=== PATIENT | male | born 1955 | race Caucasian/White ===

== ENCOUNTER 2017-06-14 08:47 | Inpatient (IN) | payer OTHER ==
[2017-06-14 09:02] VITALS: BMI 23.6
--- NOTE | 2017-06-14 09:04 | PDOC ---
History of Present Illness <Hannah Blackmon - Last Filed: 06/14/17 18:42> - History of Present Illness Initial Comments: 62 year old male with history of Hep C (s/p Ribavirin treatment) complicated with metastatic hepatic carcinoma (s/p failed chemo with mets to the mediastinum ) curently with recent renal compromise currently on palliative treatments (but not on hospice) BIBA for AMS after being found down at home by his couch. He has no history of hepatic encephalopathy and there was no mention of initiating dialysis for his recent renal insult. Upon arrival to the ED he had a waxing/ waning mental status with some moments of complete clarity. He did come into the the ED with living will forms indicating that he is a DNR/ DNI which was confirmed with him while he was mentating well and corroborated by his brother, sister, and his parents. Of note, he is on morphine and oxycodone at home. He has no current complaint and denies fevers, chills, nausea, vomiting, diarrhea, chest pain, or other symptoms. 06/14/17 10:40 <Marco Antonio Deluna - Last Filed: 06/15/17 10:25> - General Chief Complaint: Altered Mental Status Stated Complaint: Altered Mental Status Time Seen by Provider: 06/14/17 08:51 Past History <Hannah Blackmon - Last Filed: 06/14/17 18:42> - Past Medical History Diabetes: Yes GI Disorders: Yes (end stage liver failure) HTN: Yes - Immunization History Immunization Up to Date: Yes - Suicide/Smoking/Psychosocial Hx Smoking History: Never smoked Have you smoked in the past 12 months: No Cigars Per Day: 1 Information on smoking cessation initiated: No Hx Alcohol Use: No Drug/Substance Use Hx: No Substance Use Type: None <Marco Antonio Deluna - Last Filed: 06/15/17 10:25> - Past Medical History Allergies/Adverse Reactions: Allergies Allergy/AdvReac Type Severity Reaction Status Date / Time No Known Allergies Allergy Verified 06/14/17 09:02 Home Medications: Ambulatory Orders Amlodipine Besylate [Norvasc -] 10 mg PO BID 06/14/17 Furosemide [Lasix] 40 mg PO DAILY 06/14/17 Losartan Potassium 100 mg PO DAILY 06/14/17 Metformin HCl 500 mg PO DAILY 06/14/17 Morphine Sulfate [Morphine Sulfate ER] 30 mg PO BID 06/14/17 Oxycodone HCl 10 mg PO QID 06/14/17 Spironolactone 50 mg PO DAILY 06/14/17 Review of Systems - Review of Systems Constitutional: No: Chills, Fever HEENTM: No: Blurred Vision Respiratory: No: Shortness of Breath, Productive cough Cardiac (ROS): No: Chest Pain, Irregular Heart Rate ABD/GI: No: Nausea, Vomiting Integumentary: Yes: Bruising, Erythema <Marco Antonio Deluna - Last Filed: 06/15/17 10:25> *Physical Exam - Vital Signs Last Vital Signs Temp Pulse Resp BP Pulse Ox 95.0 F L 71 18 100/55 98 06/14/17 08:51 06/14/17 18:12 06/14/17 18:12 06/14/17 18:12 06/14/17 18:12 <Hannah Blackmon - Last Filed: 06/14/17 18:42> - Vital Signs Last Vital Signs Temp Pulse Resp BP Pulse Ox 95.0 F L 64 18 99/57 100 06/14/17 08:51 06/14/17 08:51 06/14/17 08:51 06/14/17 08:51 06/14/17 08:51 - Physical Exam General Appearance: Yes: Appropriately Dressed, Thin (Face and arms are thin/ cahcectic but his abdomen is large and apparently fluid filled. He is overall jaundiced.). No: Apparent Distress HEENT: positive: EOMI, CAM, Normal Voice, Scleral Icterus (R), Scleral Icterus (L). negative: Normal ENT Inspection Neck: positive: Trachea midline, Normal Thyroid, Supple. negative: Tender, Rigid Respiratory/Chest: positive: Lungs Clear, Normal Breath Sounds. negative: Chest Tender, Respiratory Distress Cardiovascular: positive: Regular Rhythm, Regular Rate, JVD. negative: Murmur Gastrointestinal/Abdominal: positive: Normal Bowel Sounds, Distended, Other ( Dullness to percussion with positive fluid wave). negative: Tender Musculoskeletal: negative: Normal Inspection (Generally very weak and acutely deconditioned.) Extremity: positive: Normal Capillary Refill (Slightly delayed cap refill), Normal Range of Motion (Weak per above). negative: Normal Inspection (Erythema in bilateral lower extremities that seems chronic.), Tender Integumentary: positive: Dry, Warm, Erythema. negative: Normal Color Neurologic: positive: Alert, Normal Response. negative: Fully Oriented (AOx 1 ( to person) but pleasant and conversant. No hallucinations or aggitation.), Motor Strength 5/5 (Very weak LE>UE) <Marco Antonio Deluna - Last Filed: 06/15/17 10:25> ED Treatment Course - LABORATORY CBC & Chemistry Diagram: 06/14/17 10:00 06/14/17 18:00 - ADDITIONAL ORDERS Additional order review: Laboratory Results 06/14/17 06/14/17 06/14/17 10:00 10:00 10:00 PT with INR INR Sodium 139 Potassium 6.1 H* Chloride 104 Carbon Dioxide 12 L Anion Gap 23 H BUN 149 H* Creatinine 4.9 H Creat Clearance w eGFR 12.10 Random Glucose 76 Lactic Acid 10.8 H* Calcium 8.7 Magnesium 3.5 H Total Bilirubin 13.6 H AST 910 H ALT 158 H Alkaline Phosphatase 384 H Ammonia 162.98 H Creatine Kinase 310 H Creatine Kinase Index 1.3 CK-MB (CK-2) 4.1 H Troponin I < 0.02 Total Protein 6.7 Albumin 2.4 L 06/14/17 10:00 PT with INR 17.70 H INR 1.57 H Sodium Potassium Chloride Carbon Dioxide Anion Gap BUN Creatinine Creat Clearance w eGFR Random Glucose Lactic Acid Calcium Magnesium Total Bilirubin AST ALT Alkaline Phosphatase Ammonia Creatine Kinase Creatine Kinase Index CK-MB (CK-2) Troponin I Total Protein Albumin 06/14/17 10:00 RBC 4.21 MCV 92.2 MCHC 33.2 RDW 18.9 H D MPV 9.0 Neutrophils % 95.0 H Lymphocytes % 1.1 L D Monocytes % 3.7 L Eosinophils % 0.0 Basophils % 0.2 - Medications Given in the ED: ED Medications Discontinued Medications Generic Name Dose Route Start Last Admin Trade Name Freq PRN Reason Stop Dose Admin Calcium Gluconate 1,000 mg 06/14/17 13:24 06/14/17 16:05 Calcium Gluconate 10% - IVPB 06/14/17 13:25 1,000 mg ONCE ONE Administration Dextrose 25 gm 06/14/17 13:27 06/14/17 14:19 D50w (Vial) - IVPUSH 06/14/17 13:28 25 gm NOW ONE Administration Insulin Human Regular 5 units 06/14/17 13:24 06/14/17 14:19 Novolin R Vial *For Ivpush Or Iv Drip Only* IVPUSH 06/14/17 13:25 5 units ONCE ONE Administration Lactulose 20 gm 06/14/17 13:29 06/14/17 14:20 Cephulac (Oral Use) PO 06/14/17 13:30 20 gm ONCE ONE Administration Sodium Bicarbonate 50 meq 06/14/17 13:25 06/14/17 14:19 Sodium Bicarbonate 8.4% - IVPUSH 06/14/17 13:26 50 meq ONCE ONE Administration Sodium Chloride 500 ml 06/14/17 10:40 06/14/17 10:51 Normal Saline - IV 06/14/17 10:41 500 ml ONCE ONE Administration <Hannah Blackmon - Last Filed: 06/14/17 18:42> - LABORATORY CBC & Chemistry Diagram: 06/14/17 10:00 06/15/17 02:10 <Marco Antonio Deluna - Last Filed: 06/15/17 10:25> Medical Decision Making - Medical Decision Making 06/14/17 18:[address] Garcia [phone] <Hannah Blackmon - Last Filed: 06/14/17 18:42> - Medical Decision Making 62 year old male with AMS most likely hepatic enchaplopathy vs. uremic encephalopathy vs. metabolic encephalopathy vs. met to brain vs. stroke. Likely the initial two as opposed to the latter. Will get CT scan, sepsis protocol labs , and defer paracentesis for now. PAtient is DNR/DNI per personal wishes, family wishies, and living will papers. VS roughly sable with some slight hypotenion with BPs in upper 90s/ low 100s. Head CT showing heterogeneous extracranial mass (previously irradiated) but no apparently new pathologies or intracranial pathology. Patient given insulin 5, glucose, sodium bicarb, calcium gluconate, and 500 NS for his electrolyte abnormalities (hyperkalemia, hyperuremia, hyperammonemia, Spoke with Dr. Garcia regarding the lab derangements and further plans for care and he is on board with an admission for tele and further electrolyte normalization. He wants Arlette as a neuro consult and Mirela Paulson as a nephrology consult. Spoke with Dr. Prescott and he held a strong opinion that we should be as minimally invasive as possible. He even suggested to stop drawing labs as he should be comfort care only. Relayed this information to Dr. Garcia and he believes that some supportive measures with D5 1/2NS @ 100 per hour should help resolve the electrolyte D5 1/2 @ 100 cc hr along with potassium lowering therapies. Placed consult for Elvira Ladd and Arlette. Spoke with family and they are going to consider all of the options. 06/14/17 13:50 Vahid (brother) number [phone] 06/14/17 18:05 Dr. Garcia spoken to while at patient bedside. He would like Kayexalate and albuterol nebs. Orders placed. He feels that he can turn the patient around without dialysis. 06/14/17 19:17 <Marco Antonio Deluna - Last Filed: 06/15/17 10:25> *DC/Admit/Observation/Transfer <Hannah Blackmon - Last Filed: 06/14/17 18:42> - Discharge Dispostion Admit: Yes <Marco Antonio Deluna - Last Filed: 06/15/17 10:25> Diagnosis at time of Disposition: Hyperkalemia, Uremia, Hyperammonemia Altered mental status Qualifiers: Altered mental status type: transient alteration of awareness Qualified Code(s) : R40.4 - Transient alteration of awareness - Discharge Dispostion Condition at time of disposition: Stable
[2017-06-14 10:08] LABS: BASOPHIL 0.2 % (0-2.0); MCH 30.6 pg (25.7-33.7); MCHC 33.2 g/dl (32.0-35.9); MEAN CELL VOLUME 92.2 fl (80-96); PLATELET COUNT 409 K/MM3 (134-434); RDW 18.9 % (11.9-15.9); WHITE BLOOD COUNT 13.5 K/mm3 (4.0-10.0)
[2017-06-14 10:20] LABS: INR 1.57 (0.82-1.09); PROTHROMBIN TIME (PATIENT) 17.7 SEC (9.98-11.88)
[2017-06-14 10:30] LABS: ALBUMIN 2.4 g/dl (3.4-5.0); ANION GAP 23 (8-16); BILIRUBIN,TOTAL 13.6 mg/dL (0.2-1.0); CALCIUM 8.7 mg/dL (8.5-10.1); CO2 12 mmol/L (21-32); CREATININE 4.9 mg/dL (0.7-1.3); GLUCOSE,RANDOM 76 mg/dL (74-106); SGPT/ALT 158 U/L (12-78); TOT PROT 6.7 g/dl (6.4-8.2)
[2017-06-14 10:31] LABS: ALK PHOS 384 U/L (45-117)
[2017-06-14 10:38] LABS: SGOT/AST 910 U/L (15-37)
[2017-06-14 10:39] LABS: MAGNESIUM 3.5 mg/dL (1.8-2.4)
[2017-06-14] MEDS ORDERED: SODIUM CHLORIDE 0.9% 1000 ML INFUS.BAG IV ONE (10:40)
--- NOTE | 2017-06-14 10:42 | PDOC ---
Attending Attestation - Resident Resident Name: Marco Antonio Deluna - ED Attending Attestation I have performed the following: I have examined & evaluated the patient, The case was reviewed & discussed with the resident, I agree w/resident's findings & plan, Exceptions are as noted - HPI HPI: 06/14/17 10:40 62-year-old male with history of hepatitis C and end-stage liver CA brought in by EMS after parents found patient on floor this morning. Patient was apparently at his baseline yesterday, ambulatory and performing his activities of daily living. This morning he was found on the floor confused, intermittently answering questions appropriately. Questions regarding advanced directives were ultimately addressed as patient confirmed with EMS that he is DNR/DNI, and EMS spoke to the patient's sister who is health care proxy who confirmed same. Paperwork is printed but unsigned but confirms the above. - Physicial Exam PE: 06/14/17 10:42 temp 95, NBP 100 systolic mental status currently improved, recalls having chills and recalls EMS transport + jaundice no head trauma abrasions to both forearms abd distended b/l leg ecchymosis - Medical Decision Making 06/14/17 11:07 Patient seen and evaluated with the resident. I agree with the overall evaluation, assessment, and management with the following summary of visit: 62-year-old male end-stage liver CVA brought in by EMS with altered mental status after found on floor this morning. Previously very altered, now becoming more lucid. Question encephalopathy, rule out TBI or brain lesion, rule out infection. Full workup with labs, urinalysis CT head, chest x-ray Discuss plan with patient and sister, confirms DNR/DNI though Airways currently patent and mental status improved Parents at bedside, agree with management We'll discuss ultimate disposition with patient's oncologist at [facility]. Heart Score/ECG Review #1 ECG reviewed & interpreted by me at: 09:00 General ECG Interpretation: Sinus Rhythm, Normal Rate (75), Normal Intervals ( qtc 446), No acute ischemic changes (baseline artifact, no clear ST changes)
[2017-06-14 10:58] LABS: CPK 310 IU/L (39-308); TROPONIN I < 0.02 ng/ml (0.00-0.05)
[2017-06-14] MEDS ORDERED: INSULIN REGULAR HUMAN 100 UNITS/ML *VIAL IVPUSH ONE ×2 (13:24→18:35)
[2017-06-14] MEDS ORDERED: CALCIUM GLUCONATE 10% - 1,000 MG/10 ML VIAL IVPB ONE (13:24)
[2017-06-14] MEDS ORDERED: SODIUM BICARBONATE 8.4% 50 MEQ/50 ML DISP.SYRIN IVPUSH ONE ×2 (13:25→18:37)
[2017-06-14] MEDS ORDERED: DEXTROSE 50%-WATER - 25 GM/50 ML VIAL IVPUSH ONE ×2 (13:27→18:36)
[2017-06-14] MEDS ORDERED: LACTULOSE 20 GM/30 ML UDC (FOR ORAL USE ONLY) PO ONE (13:29)
[2017-06-14] MEDS ORDERED: SODIUM BICARBONATE 8.4% - 50 ML ONE ×2 (14:12→18:53)
[2017-06-14] MEDS ORDERED: LACTULOSE 20 GM/30 ML UDC (FOR ORAL USE ONLY) ONE (14:12)
[2017-06-14] MEDS ORDERED: DEXTROSE 50%-WATER 25 GM/50 ML DISP.SYRIN ONE ×2 (14:12→18:53)
--- NOTE | 2017-06-14 14:42 | EKG ---
Test Reason : Blood Pressure : / mmHG Vent. Rate : 075 BPM Atrial Rate : 075 BPM P-R Int : 206 ms QRS Dur : 102 ms QT Int : 400 ms P-R-T Axes : 076 -18 071 degrees QTc Int : 446 ms NORMAL SINUS RHYTHM CANNOT RULE OUT ANTERIOR INFARCT , AGE UNDETERMINED ABNORMAL ECG WHEN COMPARED WITH ECG OF 12-JUN-2008 10:10, QRS VOLTAGE HAS DECREASED T WAVE VARIATION BASELINE ARTIFACT Confirmed by LISA CALDWELL, LOR ([id number]) on 06/14/2017 2:41:47 PM Referred By: Confirmed By:LOR GONZALEZ MD
[2017-06-14] MEDS ORDERED: DEXTROSE 5%-0.45% SALINE 1,000 ML IV SCH ×2 (14:45)
[2017-06-14] MEDS ORDERED: CALCIUM GLUCONATE 10% - 1,000 MG/10 ML VIAL ONE ×2 (15:56→20:35)
[2017-06-14 18:26] LABS: ALBUMIN 1.5 g/dl (3.4-5.0); ANION GAP 23 (8-16); BILIRUBIN,TOTAL 8.6 mg/dL (0.2-1.0); CALCIUM 7.5 mg/dL (8.5-10.1); CO2 10 mmol/L (21-32); CREATININE 4.8 mg/dL (0.7-1.3); GLUCOSE,RANDOM 171 mg/dL (74-106); SGPT/ALT 229 U/L (12-78); TOT PROT 4.1 g/dl (6.4-8.2)
[2017-06-14 18:29] LABS: ALK PHOS 218 U/L (45-117); CPK 466 IU/L (39-308); SGOT/AST 896 U/L (15-37); TROPONIN I < 0.02 ng/ml (0.00-0.05)
[2017-06-14] MEDS ORDERED: CALCIUM GLUCONATE 10% - 1,000 MG/10 ML VIAL IVPUSH ONE (18:37)
[2017-06-14] MEDS ORDERED: PIPERACIL/TAZOB 3.375 GM 3.375 GM/50 ML PREMIX IVPB ONE (19:02)
[2017-06-14] MEDS ORDERED: VANCOMYCIN 2,000 MG in DEXTROSE 5%-WATER - 500 ML IVPB SCH (19:15)
[2017-06-14] MEDS ORDERED: SODIUM POLYSTYRENE SULFONATE 15 GM/60 ML BOTTLE PO ONE (19:15)
[2017-06-14] MEDS ORDERED: ALBUTEROL SO4 0.083% IH SOL 2.5 MG/3 ML VIAL.NEB. NEB ONE ×2 (19:16→20:35)
[2017-06-14] MEDS ORDERED: PIPERACILLIN/TAZOB 3.375 GM 50 ML IVPB ONE ×2 (19:30→20:35)
[2017-06-14] MEDS ORDERED: SODIUM POLYSTYRENE SULFONATE 15 GM/60 ML BOTTLE ONE (20:35)
[2017-06-14] MEDS ORDERED: VANCOMYCIN 1 GRAM (PRE-DOCKED) 500 ML IVPB ONE (21:19)
[2017-06-15 03:00] LABS: ANION GAP 24 (8-16); CALCIUM 7.5 mg/dL (8.5-10.1); CO2 11 mmol/L (21-32); CREATININE 4.8 mg/dL (0.7-1.3); GLUCOSE,RANDOM 126 mg/dL (74-106)
[2017-06-15] MEDS ORDERED: SODIUM POLYSTYRENE SULFONATE 15 GM/60 ML BOTTLE PO ONE (05:00)
[2017-06-15] MEDS ORDERED: SODIUM POLYSTYRENE SULFONATE 15 GM/60 ML BOTTLE ONE (05:02)
[2017-06-15] MEDS ORDERED: DEXTROSE 5%-WATER - 1,000 ML with SODIUM BICARBONATE 8.4% - 150 MEQ IV SCH (09:45)
--- NOTE | 2017-06-15 09:56 | CON.NEP ---
Consult Consult Specialty:: Nephrology Referred by:: Dr. Garcia Reason for Consultation:: DAVIE, Hyperkalemia, Metabolic Acidosis - History of Present Illness Chief Complaint: AMS History of Present Illness: This is a 62 year old gentleman with with PMhx of Hepatitis C with cirrhosis and HCC with Mets with DAVIE/CKD presented with AMS and found to have worsening renal function, metabolic acidosis and lactic acidosis. Pt seen at the bedside this am, is awake and alert but not able to provide history. Denies any pain at this time. Unclear if pt is making urine. Pt was started on IVF upon admission. Pt noted to have hyperkalemia and treated with Kayexalate/IV insulin. No cornelius inserted so unsure how much urine is being produced. - History Source History Provided By: Medical Record Limitations to Obtaining History: Clinical Condition - Past Medical History Gastrointestinal: Yes: Cancer, Other Hepatobiliary: Yes: Cirrhosis, Hepatitis C Renal/: Yes: Renal Failure, Renal Inusuff - Alcohol/Substance Use Hx Alcohol Use: No - Smoking History Smoking history: Never smoked Have you smoked in the past 12 months: No Aproximately how many cigarettes per day: 20 Home Medications - Allergies Allergies/Adverse Reactions: Allergies Allergy/AdvReac Type Severity Reaction Status Date / Time No Known Allergies Allergy Verified 06/14/17 09:02 - Home Medications Home Medications: Ambulatory Orders Amlodipine Besylate [Norvasc -] 10 mg PO BID 06/14/17 Furosemide [Lasix] 40 mg PO DAILY 06/14/17 Losartan Potassium 100 mg PO DAILY 06/14/17 Metformin HCl 500 mg PO DAILY 06/14/17 Morphine Sulfate [Morphine Sulfate ER] 30 mg PO BID 06/14/17 Oxycodone HCl 10 mg PO QID 06/14/17 Spironolactone 50 mg PO DAILY 06/14/17 Family Disease History - Family Disease History Family History: Unable to Obtain Review of Systems - Review of Systems Constitutional: reports: Lethargy, Loss of Appetite. denies: Fever Eyes: reports: No Symptoms Neck: reports: No Symptoms Cardiovascular: reports: No Symptoms Respiratory: reports: No Symptoms Gastrointestinal: reports: Bloating Musculoskeletal: reports: No Symptoms Endocrine: reports: No Symptoms Nephrology Consult - Height Height: 5 ft 9 in - Weight Weight: 160 lb - BMI Body Mass Index (BMI): 23.6 - Lab Results CBC,BMP: CBC, BMP 06/15/17 02:10 Anion Gap: Anion Gap Anion Gap 24 (8-16) H 06/15/17 02:10 - Imaging Chest X-ray: Report Reviewed - Physical Examination Vital Signs: Vital Signs Temperature 92.8 F L 06/15/17 02:00 Pulse Rate 65 06/15/17 02:00 Respiratory Rate 20 06/15/17 02:00 Blood Pressure 88/57 06/15/17 02:00 O2 Sat by Pulse Oximetry (%) 96 06/14/17 22:00 Constitutional: Yes: No Distress, Calm, Cachectic Eyes: Yes: Sclera Icterus HENT: Yes: Atraumatic, Normocephalic Neck: Yes: Supple Cardiovascular: Yes: Regular Rate and Rhythm Respiratory: Yes: Regular, Diminished. No: Rales, Rhonchi, Wheezes Gastrointestinal: Yes: Soft, Ascites. No: Palpable Mass, Tenderness Renal/: No: Anuria, Bladder Distention, CVA Tenderness - Left, CVA Tenderness - Right, Cornelius Present Edema: Yes Edema: LLE: 1+, RLE: 1+ Neurological: Yes: Alert. No: Oriented Psychiatric: Yes: Alert Problem List - Problems (1) Altered mental status Code(s): R41.82 - ALTERED MENTAL STATUS, UNSPECIFIED Qualifiers: Altered mental status type: transient alteration of awareness Qualified Code(s): R40.4 - Transient alteration of awareness; R40.4 - Transient alteration of awareness (2) Hyperammonemia Code(s): E72.20 - DISORDER OF UREA CYCLE METABOLISM, UNSPECIFIED (3) Hyperkalemia Code(s): E87.5 - HYPERKALEMIA (4) Uremia Code(s): N19 - UNSPECIFIED KIDNEY FAILURE (5) Metabolic acidosis Code(s): E87.2 - ACIDOSIS (6) Lactic acidosis Code(s): E87.2 - ACIDOSIS Assessment/Plan 62 year old gentleman with with PMhx of Hepatitis C with cirrhosis and HCC with Mets with DAVIE/CKD presented with AMS and found to have worsening renal function , metabolic acidosis and lactic acidosis. #Progressive renal failure in setting of hepatitis C cirrhosis likely due to progressive Hepato-renal syndrome with metabolic acidosis and hyperkalemia pt without significant improvement in renal function with IVF started yesterday evening at this time dialysis is likely the only option but given advanced cirrhosis and carcinoma his overall prognosis remains grave. spoke to his brother Raj ([phone]) at length about his current status and he made it clear that Mr. Plunkett does not want any aggressive measures including dialysis at this time and that he would want comfort measures. Will change IVF to D5W with sodium bicarbonate given his level of acidosis no further labs to be drawn #Hepatitis C with cirrhosis and HCC with Mets pt is end stage at this time comfort care measures Prognosis is grave Will monitor Thank you Compa Berry DO
[2017-06-15] MEDS ORDERED: SODIUM BICARBONATE 8.4% - 150 MEQ in DEXTROSE 5%-WATER - 1,000 ML IV SCH (10:13)
--- NOTE | 2017-06-15 10:37 | HP ---
DATE OF ADMISSION: 06/14/2017 HISTORY OF PRESENT ILLNESS: This is a 62-year-old male known to have hepatitis C and CA of the liver end-stage, who was being treated at [facility]. Yesterday, he was found unresponsive at home, was brought to the emergency room. In the emergency room, he was very lethargic, hypotensive, in septic shock. This morning, he is awake, he is very lethargic, and he is not talking properly. PHYSICAL EXAMINATION: Vital signs: BP 88/60, pulse 65, temperature 92, respirations 24. General: Very cachectic. Neck: supple. Lungs: Breath sounds diminished. Heart: S1, S2 normal. No S3, S4. Abdomen: Distended. Extremities: There is erythema on both the legs. Neurological: Grossly lethargic. LABORATORY REPORTS: WBC 13, hemoglobin 12.9. Coagulation: INR 1.5. Chemistry: Sodium 140, potassium 6.5, BUN 171, creatinine 4.8, lactic acid high 12.1. IMPRESSION: Patient with end-stage cancer of the liver. PLAN: Family wants him DNR. I will order DNR, no aggressive management at this time. Clem [id number]
--- NOTE | 2017-06-15 12:29 | EKG ---
Test Reason : Blood Pressure : / mmHG Vent. Rate : 077 BPM Atrial Rate : 077 BPM P-R Int : 190 ms QRS Dur : 076 ms QT Int : 412 ms P-R-T Axes : 020 -27 004 degrees QTc Int : 466 ms SINUS RHYTHM Baseline wander LOW VOLTAGE QRS BORDERLINE ECG WHEN COMPARED WITH ECG OF 14-JUN-2017 09:00, QRS DURATION HAS DECREASED FURTHER COMPARISON IS NOT POSSILE BECAUSE OF SIGNIFICANT ARTIFCSTS ON PREVIOUS EKG REPEAT EKG IF CLINICALLY INDICATED Confirmed by COLIN DELGADO MD ([id number]) on 06/15/2017 12:29:00 PM Referred By: Confirmed By:COLIN DELGADO MD
--- NOTE | 2017-06-15 12:53 | HOSP ---
Subjective - Review of Symptoms Subjective: Asked by RN to evaluate patient for exam Patient DNR/DNI Family at bedside-mother father and brother no electrical activity on EKG no heart sounds no lung sounds no spontaneous respirations no gag or corneal reflexes pupils fixed and dilated-non reactive Time of : 1247pm Dr. Garcia made aware Physical Examination Vital Signs: Vital Signs Temperature 92.8 F L 06/15/17 02:00 Pulse Rate 65 06/15/17 02:00 Respiratory Rate 20 06/15/17 02:00 Blood Pressure 88/57 06/15/17 02:00 O2 Sat by Pulse Oximetry (%) 96 06/14/17 22:00 Labs: CBC, BMP 06/15/17 02:10 Visit type - Emergency Visit Emergency Visit: Yes ED Registration Date: 06/14/17 Care time: The patient presented to the Emergency Department on the above date and was hospitalized for further evaluation of their emergent condition. - New Patient This patient is new to me today: Yes Date on this admission: 06/15/17 - Critical Care Critical Care patient: No
[2017-06-15 13:04] VITALS: BP 54/40; PULSE 42; TEMP 95
--- NOTE | 2017-06-15 17:05 | CONSULT ---
Consult - text type - Consultation Consultation Note: NEUROLOGY CONSULTATION is greatly appreciated: Events reviewed and are consistent with severe Hepatic (and uremic) encephalopathy. Patient prior to examination. Santino Lombardo MD
== END 2017-06-15 13:42 | disposition expired | DRG 281 ==
LOC: JER 08:47 → JERBED 13:29 → J4W 22:02
PROVIDERS: ADMIT Internal Medicine; ATTEND Internal Medicine
DX: C22.7 Other specified carcinomas of liver (principal); K72.90 Hepatic failure, unspecified without coma; E72.20 Disorder of urea cycle metabolism, unspecified; I46.9 Cardiac arrest, cause unspecified; N17.9 Acute kidney failure, unspecified; E87.2 Acidosis; C78.1 Secondary malignant neoplasm of mediastinum; E11.9 Type 2 diabetes mellitus without complications; K74.69 Other cirrhosis of liver; E87.5 Hyperkalemia; R40.4 Transient alteration of awareness; S80.11XA Contusion of right lower leg, initial encounter; S80.12XA Contusion of left lower leg, initial encounter; S40.812A Abrasion of left upper arm, initial encounter; S40.811A Abrasion of right upper arm, initial encounter; Y92.098 Other place in other non-institutional residence as the place of occurrence of the external cause; B19.20 Unspecified viral hepatitis C without hepatic coma; R14.0 Abdominal distension (gaseous); I12.9 Hypertensive chronic kidney disease with stage 1 through stage 4 chronic kidney disease, or unspecified chronic kidney disease; N18.9 Chronic kidney disease, unspecified; Z66 Do not resuscitate; W18.39XA Other fall on same level, initial encounter; Y93.89 Activity, other specified
CPT/HCPCS: 36415; 70450-TC; 71010-TC; 80048; 80053; 82140; 82550; 82553; 83605; 83735; 84484; 85025; 85610; 87040; 93005; 93010; 99284-25